=== PATIENT | female | born 1955 | race Caucasian/White ===

== ENCOUNTER 2017-02-25 15:46 | Emergency (ER) | payer OTHER ==
[~2017-02-25] VITALS: Ht 157.5 cm; Wt 100.0 kg
[~2017-02-25 15:46] MED LIST: ALBU8.5H2 INHALATION; ATEN50TA PO; CYCL10TA9 PO; DULO60CA61 PO; FEXO-106 PO; HYDR25TA4 PO; OXYC1TAB24 PO; PHEN-684 PO; RANI150C4 PO; TAMS0.4C98 PO
[2017-02-25 16:44] VITALS: BP 113/74; PULSE 76; RESP 21; O2SAT 97
[2017-02-25 18:27] LABS: APPEARANCE,URINE HAZY (CLEAR,HAZY); COLOR,URINE YELLOW (YELLOW); PH,URINE 6.5 (5.0-8.0)
[2017-02-25 18:28] LABS: OCCULT BLOOD,URINE MODERATE (NEGATIVE); UROBILINOGEN,URINE NORMAL (NORMAL)
[2017-02-25 18:37] VITALS: BP 113/55; PULSE 72; O2SAT 95
[2017-02-25] MEDS ORDERED: cefTRIAXone Inj 2,000 MG in Dextrose 5% Minibag Plus 50 ML IV ONE (18:45)
--- NOTE | 2017-02-25 18:46 | ED.REPORT ---
HPI-Abd Pain F 40 and Over Date of Service Feb 25, 2017 ED Provider: Barak Edwards MD History of Present Illness: OCC Sent from w/concern for kideny infection A 61 year old female with a history of stage III kidney failure, cervical cancer and kidney stones presents to the ED with back pain that began approx. 2 weeks ago. The stabbing pain is exacerbated by movement and cough. Pain is associated with diaphoresis. Symptoms have become progressively worse since onset and Tylenol has been ineffective for treating her pain. Patient was seen at this evening and the patient was sent to the ED for further evaluation with concern for pyelonephritis. Patient felt similar pain previously and does not believe that her pain is due to kidney stones. She denies fever, chills, dysuria, unilateral swelling in her legs, nausea, vomiting or changes in urgency or frequency. No recent antibiotic use. Nursing Notes Stated Complaint: KIDNEY PAIN Chief Complaint: Female Abdominal Pain Nursing Notes Reviewed: Yes ([id number], meds not reconciled) Allergies: Coded Allergies: Penicillins (Verified Allergy, Severe, Shortness of Breath, 01/23/16) hydrocodone (Verified Allergy, Severe, RASH, 01/23/16) [place] And Derivatives (Verified Allergy, Unknown, UNKNOWN, 01/23/16) morphine (Verified Allergy, Unknown, UNKNOWN, 01/23/16) TAPE (Verified Adverse Reaction, Severe, Rash (ADHESIVE/PLASTIC), ) Scheduled Atenolol (Atenolol) 50 Mg Tablet 50 MG PO DAILY Cyclobenzaprine (Cyclobenzaprine) 10 Mg Tablet 10 MG PO DAILY Duloxetine (Duloxetine) 60 Mg Capsule.dr 60 MG PO DAILY Fexofenadine (Fexofenadine) 180 Mg Tablet 180 MG PO DAILY Hydrochlorothiazide (Hydrochlorothiazide) 25 Mg Tablet 25 MG PO DAILY Ranitidine (Ranitidine) 150 Mg Capsule 150 MG PO DAILY Sulfamethoxazole/Trimeth 800-160 mg (Bactrim DS) 1 Each Tablet 1 TABLET PO BID Tamsulosin (Flomax) 0.4 Mg Capsule 0.4 MG PO DAILY Scheduled PRN Albuterol HFA (Proair HFA) 8.5 Gm Hfa.aer.ad 2 PUFFS INHALATION Q4H PRN PRN PRN Ondansetron ODT (Ondansetron ODT) 8 Mg Tab.rapdis 8 MG PO Q4H PRN PRN For Nausea Phenazopyridine (Pyridium) 200 Mg Tablet 200 MG PO TID PRN PRN bladder spasm oxyCODONE (oxyCODONE) 5 Mg Tablet 5-10 MG PO Q6H PRN PRN For Pain oxyCODONE-Acetaminophen 5-325 mg (oxyCODONE-Acetaminophen 5-325 mg) 1 Each Tablet 1-2 TAB PO Q6H PRN PRN For Pain General Time Seen by MD: 18:38 Chief Complaint Other (Back pain) Hx Obtained From: Patient Arrived By: Walk-in Sudden in Onset?: No Onset Occurred: More than a week ago... (2 weeks) Symptom Duration: Since onset Progression since Onset: Gradually worsening Location: : Back Quality: Painful, Sharp Radiation: : Does not radiate Severity: Current: Moderate Severity: Maximum: Moderate Associated with: Denies: Chills, Dysuria, Fever, Nausea, Vomiting Pertinent Negative: Pt denies other symptoms Exacerbated by: Cough, Movement Recent Healthcare: No recent hospitalization, Recent doctor visit Similar Sx Previous: Yes Risk Factors )( AAA Risk Stratification Risk factors reviewed Past Medical History Past Medical History Hypertension Blood clot Kidney stones Stage III kidney failure Cervical cancer- in remission Reports: Asthma Past Surgical History Surgery for "blood clot" Reports: Cholecystectomy, Hysterectomy Smoking History Light Tobacco Smoker Social History Alcohol Use: Denies alcohol use Drug Use: Denies drug use Other Social History: Smokeless tobacco, Good social support, Local resident Ambulatory Status Independent Review of Systems Constitutional: Denies: Chills, Fever GI: Reports: Abdominal pain, Denies: Nausea, Vomiting Female: Denies: Dysuria, Urinary frequency, Urinary urgency Musculoskeletal: Reports: Back pain, Denies: Extremity swelling Complete sys rev & neg: except as marked. Physical Exam Vital Signs Vital Signs (First) Date Time Temp Pulse Resp B/P Pulse Ox O2 Delivery O2 Flow Rate FiO2 02/25/17 16:44 36.6 76 21 113/74 97 Room Air Initial VS: Reviewed, Vital signs normal Head / Eyes: Atraumatic, Normocephalic, PERRL Neck: Supple, Non-tender, Full range of motion Extremities: Vascular intact, Neuro intact, No swelling, No tenderness Skin: Warm, Dry, No cyanosis Neurologic: Alert, Oriented, Nonfocal Psychiatric: Mood/affect normal, Behavior normal, Normal thought content General/Constitutional: Awake, Alert, No acute distress Respiratory / Chest: Atraumatic, Breath sounds NL, Breath sounds = bilat, No respiratory distress Cardiovascular: Heart rate NL, Regular rhythm, Heart sounds NL Abdomen: Atraumatic, Soft, Non-tender, No guarding, No rebound Back: Atraumatic BACK: Left CVA tenderness Interpretation & Diagnostics Lab Results Interpretation Result Diagram: 02/25/17 19302/25/17 193 Test 02/25/17 17:04 02/25/17 18:12 02/25/17 19:33 Hold Urine Received (Received) Urine Color Yellow (YELLOW) Urine Appearance Hazy (CLEAR,HAZY) Urine pH 6.5 (5.0-8.0) Urine Specific [place] 1.010 (1.003-1.035) Urine Protein Tracemg/dL (NEG,TRACE) Urine Glucose (UA) Negativemg/dL (NEGATIVE) Urine Ketones Negativemg/dL (NEGATIVE) Urine Occult Blood Moderate (NEGATIVE) Urine Nitrite Negative (NEGATIVE) Urine Bilirubin Negative (NEGATIVE) Urine Urobilinogen Normalmg/dL (NORMAL) Urine Leukocyte Esterase Large (NEGATIVE) Urine RBC 3-10/hpf (0-2) Urine WBC >50/hpf (0-5) Urine Epithelial Cells Occasional/hpf (NONE-MOD) Urine Crystals None seen (NONE SEEN) Urine Bacteria Moderate/hpf (NONE-FEW) Urine Hyaline Casts None/lpf (NONE) Urine Granular Casts None seen (NONE SEEN) Urine Waxy Casts None seen (NONE SEEN) Urine Red Blood Cell Casts None seen (NONE SEEN) Urine White Blood Cell Casts None seen (NONE SEEN) Urine Mucus None seen (None Seen) Urine Trichomonas None seen (NONE SEEN) Urine Yeast None (NONE SEEN) Urinalysis Comment None Urine Culture Reflexed Indicated White Blood Count 7.7th/mm3 (3.8-10.1) Red Blood Count 4.70mil/mm3 (3.90-5.20) Hemoglobin 15.0g/dL (12.0-15.6) Hematocrit 45.4% (35.0-46.0) Mean Corpuscular Volume 96.6fL (81-100) Mean Corpuscular Hemoglobin 31.9pg (27.0-35.0) Mean Corpuscular Hemoglobin Concent 33.0% (32.0-37.0) Red Cell Distribution Width 13.9% (12.3-15.4) Platelet Count 322bil/L (150-400) Neutrophils (%) (Auto) 64.8% (40-74) Lymphocytes (%) (Auto) 21.3% (14-46) Monocytes (%) (Auto) 8.2% (4-12) Eosinophils (%) (Auto) 5.2% (0-5) Basophils (%) (Auto) 0.4% (0-3) Sodium Level 140mEq/L (134-144) Potassium Level 4.7mEq/L (3.5-5.2) Chloride Level 101mEq/L (97-108) Carbon Dioxide Level 25mmol/L (18-29) Blood Urea Nitrogen 24mg/dL (6-24) Creatinine 1.28mg/dL (0.57-1.00) Estimat Glomerular Filtration Rate 61mL/min (>59) Glucose Level 105mg/dL (60-99) Lactic Acid Level 1.0mmol/L (0.4-2.0) Calcium Level 9.9mg/dL (8.5-10.1) Total Bilirubin 0.4mg/dL (0.0-1.2) Aspartate Amino Transf (AST/SGOT) 20U/L (0-50) Alanine Aminotransferase (ALT/SGPT) 21U/L (0-32) Alkaline Phosphatase 85U/L (25-165) Total Protein 7.8g/dL (6.4-8.4) Albumin 3.9g/dL (3.4-5.0) Lab Results Interpretation: CBC normal limits and CMP marginal renal insufficiency UA highly suggestive of infection, culture pending Re-Eval/Medical Decision Med Decision/Clinical Course This is a 61-year-old female sent over from urgent care with complaints of 2 weeks of increasing left flank pain. She is very concerned as her kidney. She has a history of some renal insufficiency, she denies faraz dysuria, denies fevers chills nausea or vomiting. I am she does not appear acutely toxic or ill. She has mild CVA tenderness, but the abdomen is soft and nontender. She is not febrile, diaphoretic or toxic. She denies nausea. Urine is markedly positive for infection, the trace amount of blood. Blood is normal. The patient was started on antibiotics and given her allergy profile, started on Bactrim for 14 day courses by current guidelines for pyelonephritis. He has been discharged with a few oxycodone which is what she was treated with for pain following her surgery-as she reports she has had problems with a number of pain medicines and could not remember what had worked adequately. I am not finding an indication for admission or imaging. The patient's had previous kidney stones, but states this is totally different, has no colicky features, and I am not finding indication that CT imaging is needed. Patient concurs. Routine and return precautions reviewed. Patient is discharged. Condition. Source of Hx: Old records Re-Evaluation/Progress : Time of Eval: 19:35 Patient Status: Condition improved, Pain improved Re-Evaluation/Progress Note: Patient condition is re-evaluated. She is informed of her current and pending results. All questions about the intended treatment plan are addressed. Patient understands and agrees with the plan. Differential Diagnosis: Positive: Pyelonephritis, Urinary tract infection, Negative: Abdominal aortic aneurysm, Acute coronary syndrome, Bladder outlet obstruct, Bowel obstruction, Cholangitis, Cholecystitis, Contusion abdominal wall, Ectopic , Gun shot wound abdomen, Intrauterine , Peritonitis, Stab wound abdomen, Trauma, abdominal Counseled Regarding: Diagnosis, Lab results, Need for follow-up, When/why to return to ED Discharge & Departure Primary Impression: Kidney infection Disposition: Home Discharge Condition All VS Reviewed: Yes Condition: Improved Patient Instructions: Back Pain (ED), Kidney Infection (ED) Additional Instructions: 1. Your urine test does have multiple markers of infection and some blood, suggesting a kidney infection. 2. We have drawn some lab tests to re-check your kidney function as well: Call in [phone] in 2 hours for results. 3. Take the antibiotic trimethoprim-sulfa DS 1 tab twice a day for 14 days. 4. Continue tylenol 1000mg up to 3-4 four times a day for pain. 5. If needed for more severe pain you can takew oxycodone 5mg 1-2 tabs up to every 6 hours. NOTE: This medication contains a narcotic and causes drowsiness. NO driving for at least 4 hours after taking. 6. It usually takes several days for symptoms to start to improve after taking antibiotics. 7. We sent a urine culture today - call in 2-3 days for results to help verify you are on the best antibiotic. 8. Take it easy. 9. Drink plenty of fluids 10. Return if new or worsening symptoms occur. Referrals: Nadia Machado (PCP) Scribe Attestation Portions of this note were transcribed by Lali Owens. I, Dr. Edwards, personally performed the history, physical exam and medical decision-making; I reviewed and confirmed the accuracy of the information in the transcribed note. Signed by: Lali Owens, 02/25/17. copies to: Nadia Machado Matthew F MD Feb 25, 2017 18:46 LALI OWENS Feb 25, 2017 19:17
[2017-02-25] MEDS ORDERED: Trimethoprim-Sulfa 160 mg-800 mg Tablet PO ONE (19:25)
[2017-02-25] MEDS ORDERED: SULF1TAB7 PO (19:33)
[2017-02-25] MEDS ORDERED: ONDA8TAB10 PO (19:33)
[2017-02-25] MEDS ORDERED: OXYC-530 PO (19:33)
[2017-02-25 19:36] LABS: BASOPHILS % (AUTO) 0.4 % (0-3); EOSINOPHILS % (AUTO) 5.2 % (0-5); MONOCYTES % (AUTO) 8.2 % (4-12); Mean Corpuscular Hemoglobin 31.9 pg (27.0-35.0); Mean Corpuscular Volume 96.6 fL (81-100); NEUTROPHILS % (AUTO) 64.8 % (40-74); Platelet Count 322 bil/L (150-400)
[2017-02-25 20:11] VITALS: BP 106/53; PULSE 77; O2SAT 99
== END 2017-02-25 20:12 | disposition home or self-care (01) ==
LOC: SED 15:46
DX: N15.9 Renal tubulo-interstitial disease, unspecified (principal); I13.10 Hypertensive heart and chronic kidney disease without heart failure, with stage 1 through stage 4 chronic kidney disease, or unspecified chronic kidney disease; N18.3 Chronic kidney disease, stage 3 (moderate); F17.200 Nicotine dependence, unspecified, uncomplicated; Z85.41 Personal history of malignant neoplasm of cervix uteri; Z79.899 Other long term (current) drug therapy; Z88.0 Allergy status to penicillin; Z88.5 Allergy status to narcotic agent